=== PATIENT | female | born 1955 | race Caucasian/White ===

== ENCOUNTER 2017-06-07 11:52 | Outpatient (CLI) | payer OTHER ==
--- NOTE | 2017-06-07 12:28 | DIAGNOSTIC IMAGING REPORT ---
PROCEDURE: XR FINGER - LEFT INDICATION: L WRIST PAIN, L THUMB PAIN TECHNIQUE: Four views. COMPARISON: None. FINDINGS: No fracture dislocation. 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 IMPRESSION: 1. No fracture or dislocation. 2. Osteoarthritis.
--- NOTE | 2017-06-07 12:30 | DIAGNOSTIC IMAGING REPORT ---
PROCEDURE: XR WRIST MIN 3 VIEWS - LEFT INDICATION: L WRIST PAIN, L THUMB PAIN TECHNIQUE: Five view of the left wrist. COMPARISON: None. FINDINGS: Normal mineralization. No fractures. Normal osseous alignment. No suspicious soft-tissue calcification or radiodense foreign bodies. IMPRESSION: 1. Intact left wrist.
== END 2017-06-07 23:00 | disposition home or self-care (01) ==
LOC: XR SRH 11:52
DX: M25.532 Pain in left wrist (principal); M19.042 Primary osteoarthritis, left hand